=== PATIENT | male | born 1965 | race Caucasian/White ===

== ENCOUNTER 2024-01-26 11:05 | Emergency (ER) | payer BC ==
[~2024-01-26] VITALS: Ht 167.6 cm; Wt 86.0 kg
[2024-01-26 11:08] VITALS: O2SAT 98
[2024-01-26] MEDS: LIDOCAINE HCL/EPINEPHRINE 1%-EPI 1:100,000 20 ML VIAL INFIL ONE (12:00)
[2024-01-26] MEDS: TETANUS, DIPHTHERIA, PERTUSSIS VAC/PF 0.5ML (>10YR OLD) IM ONE (12:02)
[2024-01-26] MEDS: IBUPROFEN 800MG TABLET PO ONE (13:29)
[2024-01-26 16:05] VITALS: BP 123/88; PULSE 99; RESP 20; TEMP 98.8
== END 2024-01-26 16:06 | disposition home or self-care (01) ==
LOC: ER 11:44
DX: S01.01XA Laceration without foreign body of scalp, initial encounter (principal); S20.211A Contusion of right front wall of thorax, initial encounter; S01.21XA Laceration without foreign body of nose, initial encounter; W18.39XA Other fall on same level, initial encounter; Y93.89 Activity, other specified; Y92.89 Other specified places as the place of occurrence of the external cause; Y99.8 Other external cause status
CPT/HCPCS: 71101; 90715; 12002; 12011; 90471; 99285; J3490; Z7610 ×6

== ENCOUNTER 2024-01-29 08:37 | Emergency (ER) | payer BC ==
[~2024-01-29] VITALS: Ht 167.6 cm; Wt 86.0 kg
[2024-01-29 08:41] VITALS: O2SAT 98
[2024-01-29 09:51] VITALS: BP 133/71; PULSE 100; RESP 18; TEMP 98.7
== END 2024-01-29 09:50 | disposition home or self-care (01) ==
LOC: ER 08:37
DX: S01.01XD Laceration without foreign body of scalp, subsequent encounter (principal); Z48.00 Encounter for change or removal of nonsurgical wound dressing; X58.XXXD Exposure to other specified factors, subsequent encounter
CPT/HCPCS: 99281

== ENCOUNTER 2024-01-31 08:25 | Emergency (ER) | payer BC ==
[~2024-01-31] VITALS: Ht 167.6 cm; Wt 86.2 kg
[2024-01-31 08:37] VITALS: BP 158/97; PULSE 104; RESP 16; TEMP 98.3; O2SAT 96
== END 2024-01-31 09:10 | disposition home or self-care (01) ==
LOC: ER 08:25
DX: S01.21XD Laceration without foreign body of nose, subsequent encounter (principal); X58.XXXD Exposure to other specified factors, subsequent encounter
CPT/HCPCS: 99281

== ENCOUNTER 2024-02-02 08:17 | Emergency (ER) | payer BC ==
[~2024-02-02] VITALS: Ht 172.7 cm; Wt 91.0 kg
[2024-02-02 08:25] VITALS: O2SAT 98
[2024-02-02 09:12] VITALS: BP 128/78; PULSE 81; RESP 18; TEMP 98.3
== END 2024-02-02 09:20 | disposition home or self-care (01) ==
LOC: ER 08:25
DX: S01.21XD Laceration without foreign body of nose, subsequent encounter (principal); Z48.02 Encounter for removal of sutures; X58.XXXD Exposure to other specified factors, subsequent encounter
CPT/HCPCS: 99281; Z7610